=== PATIENT | male | born 1955 | race Caucasian/White ===

== ENCOUNTER → 2017-12-30 | Day surgery (SDC) | payer OTHER ==
[~2017-12-30] VITALS: Ht 172.7 cm; Wt 83.9 kg
[~2017-12-30] MED LIST: Acetaminophen (Non formulary) 100 ML IV ONE; Atropine Sulfate 0.4mg/ml inj IVP PRN; Bacitracin 50000 Units Vial ONE; Bacitracin Oint 15gm Tube TOPIC ONE; Bupivacaine w/Epi 0.5% 30ml Vial INJ ONE; Dexamethasone 4mg/ml vial ONE; DiphenhydrAMINE 50mg/ml Inj IVP PRN; Gelfoam Absorbable 1gm powder pkt TOPIC ONE; Gelfoam Size TOPIC ONE; HYDROcodone/Acetamin 7.5/325 tab ORAL PRN; Heparin 1000 units/ml 1ml Vial ONE; Heparin 5000 units/ml inj ONE; Hydromorphone 0.5mg/0.5ml inj IVP PRN; IBUPROFEN600 MG ORAL; Ketorolac 30mg Inj IV PRN; LORazepam Inj 2mg/ml 1ml IV PRN; LR 1000ml 1,000 ML IVLG SCH; Lidocaine 1% MPF 10mg/ml 5ml ONE; Lidocaine 1% Plain 30 ml INJ ONE; Meperidine 50mg/ml Inj(FOR RIGORS ONLY) IVP PRN; Metoclopramide 10mg/2ml Inj IVP PRN; Midazolam 2mg/2ml Inj IVP PRN; Norco 5mg/325mg tab ORAL PRN; Pantoprazole Inj IVP ONE; Pantoprazole Inj ONE; Thrombin 5000 units TOPIC ONE; Thrombin 5000 units spray kit TOPIC ONE; Vancomycin 1gm inj IVPB ONE; Vancomycin 1gm/D5W 275ml IVPB ONE; Zemuron 50mg/5ml Inj IV ONE; fentaNYL 100 mcg/2 mL IV ONE; fentaNYL 100 mcg/2 mL IV PRN; oxyCODONE HCL/Acetaminophen 5/325mg ORAL PRN
[2017-12-30 06:26] VITALS: BP 146/93
--- NOTE | 2017-12-30 07:03 | Anethesia Preoperative Eval ---
Anesthesia Pre-op PMH/ROS General Date of Evaluation: Dec 30, 2017 Anesthesiologist: Cm ASA Score: ASA 2 Mallampati Score Class I : Soft palate, uvula, fauces, pillars visible Class II: Soft palate, uvula, fauces visible Class III: Soft palate, base of uvula visible Class IV: Only hard plate visible Mallampati Classification: Class II Surgeon: Daria Diagnosis: Back Pain Surgical Procedure: TLIF L1-2 Anesthesia History: none Family History: no anesthesia problems Allergies: Coded Allergies: No Known Allergies (Unverified , 12/29/17) Medications: see eMAR Patient NPO?: Yes NPO Date: Dec 29, 2017 NPO Time: 1900 Past Medical History Other: obesity - BMI 30 PSxH Narrative: Multiple Orthopedic Surgeries,Shoulder Anesthesia Pre-op Phys. Exam Physician Exam Last Vital Signs Date Time Temp Pulse Resp B/P (MAP) Pulse Ox O2 Delivery O2 Flow Rate FiO2 12/30/17 06:26 97.3 61 20 146/93 (110) 95 97.3 12/30/17 06:05 Room Air Constitutional: NAD Neurologic: CN 2-12 intact Cardiovascular: RRR Respiratory: CTA Gastrointestinal: S/NT/ND Airway Exam Mallampati Score: Class II MO: full ROM: limited Teeth: intact Anesthesia Pre-op A/P Risk Assessment & Plan Assessment: ASA 2 Plan: GA, SED, GlideScope Go Status Change Before Surgery: No Pre-Antibiotics Dru Gram Vancomycin IV Given Within 1 Hr of Incision: Yes Lucio Pabon MD Dec 30, 2017 07:03
--- NOTE | 2017-12-30 07:39 | Pre-Procedure Note/Attestation ---
Pre-Procedure Note/Attestation Complete Prior to Procedure Planned Procedure: bilateral Procedure Narrative: Bilateral posterior lumbar decompression and transforaminal interbody fusion with titanium cage, interspinous fusion at the L1-2 level with titanium implant , autologous bone, allograft and iliac crest bone marrow aspiration. Attestation I attest that I discussed the nature of the procedure; its benefits; risks and complications; and alternatives (and the risks and benefits of such alternatives ), prior to the procedure, with the patient (or the patient's legal accounts receivable representative). I attest that, if there was a reasonable possibility of needing a blood transfusion, the patient (or the patient's legal accounts receivable representative) was given the [place] [employer] standardized written summary, pursuant to the [place] Blood Safety Act ([place] Health and Safety Code # 1645, as amended). I attest that I re-evaluated the patient just prior to the surgery and that there has been no change in the patient's H&P, except as documented below: Jayson Huff MD Dec 30, 2017 07:39
--- NOTE | 2017-12-30 07:47 | Immediate Post-Op Evaluation ---
Immediate Post-Op Evalulation Immediate Post-Op Evalulation Procedure: TLIF L1-2 Date of Evaluation: Dec 30, 2017 Blood Products: 0 Pain Score (1-10): 3 Nausea: No Vomiting: No Complications 0 Patient Status: awake, reacts, patent, extubated, none Hydration Status: adequate Dru Gram Vancomycin IV Given Within 1 Hr of Incision: Yes Lucio Pabon MD Dec 30, 2017 07:47
== END | disposition home or self-care (01) ==
LOC: UNDOADMIN 05:16 → SDSOVERFLO 05:16 → OUT 07:00 → EDSTATUS 07:00
DX: M54.16 Radiculopathy, lumbar region (principal); Z53.8 Procedure and treatment not carried out for other reasons; M25.50 Pain in unspecified joint
CPT/HCPCS: 36415; 86850; 86900; 86901; 87081; J2405